=== PATIENT | male | born 1980 | race Caucasian/White ===

== ENCOUNTER 2017-10-12 19:43 | Emergency (ER) | payer OTHER ==
[2017-10-12] MEDS ORDERED: LORazepam 1 MG Tab PO ONE ×2 (19:44→22:50)
--- NOTE | 2017-10-12 22:02 | EDM.PDOC ---
ED HPI GENERAL MEDICAL PROBLEM - General Chief Complaint: General Stated Complaint: DT'S QUIT DRINKING 5 DAYS AGO, [id number] Time Seen by Provider: 10/12/17 21:45 Source of Information: Reports: Patient History Limitations: Reports: No Limitations - History of Present Illness INITIAL COMMENTS - FREE TEXT/NARRATIVE: ED with c/o withdrwal symptoms. Last drink 5 days ago. States has not slept for 3 days, shaky and anxious. Worried that he might have a seizure. Denies hx of previous seizure. Admits drinking at least a gallon of vodka daily for past 2 years. Generalized Pain Score (Numeric/FACES): 4 - Related Data Allergies Allergy/AdvReac Type Severity Reaction Status Date / Time Penicillins Allergy Cannot Verified 10/12/17 21:35 Remember Home Meds: Home Meds busPIRone [Buspar] 10 mg PO BID 10/12/17 [History] CIWAA - CIWAA CIWAA Nausea And Vomitin - Mild Nausea with No Vomiting CIWAA Tremor: 6 CIWAA Paroxysmal Sweats: 4 - Beads of Sweat Obvious on Forehead CIWAA Anxiety: 4 - Moderately Anxious, or Guarded, so Anxiety is Inferred CIWAA Agitation: 4 - Moderately Fidgety and Restless CIWAA Tactile Disturbances: 2 - Mild Itching, Pins and Howell, Burning or Numbness CIWAA Auditory Disturbances: 2 - Mild Harshness or Ability to Frighten CIWAA Visual Disturbances: 1 - Very Mild Sensitivity CIWAA Headache, Fullness in Head: 2 - Mild CIWAA Orientation And Clouding Of Sensorium: 0 - Oriented and Can do Serial Additions CIWAA Scale Score: 26 Past Medical History Psychiatric History: Reports: Addiction - Past Surgical History HEENT Surgical History: Reports: Adenoidectomy, Other (See Below) Social & Family History - Tobacco Use Smoking Status *Q: Current Every Day Smoker Years of Tobacco use: 20 Packs/Tins Daily: 20 Used Tobacco, but Quit: No Second Hand Smoke Exposure: Yes - Caffeine Use Caffeine Use: Reports: Coffee, Soda, Tea - Alcohol Use Days Per Week of Alcohol Use: 7 Number of Drinks Per Day: 20 Total Drinks Per Week: 140 Date of Last Drink: 10/08/17 - Recreational Drug Use Recreational Drug Use: Yes Drug Use in Last 12 Months: Yes Recreational Drug Type: Reports: Marijuana/Hashish Recreational Drug Use Frequency: Weekly ED ROS GENERAL - Review of Systems Review Of Systems: See Below Constitutional: Reports: Diaphoresis HEENT: Reports: No Symptoms Respiratory: Reports: No Symptoms Cardiovascular: Reports: Dyspnea on Exertion GI/Abdominal: Reports: Decreased Appetite, Nausea. Denies: Vomiting Skin: Reports: No Symptoms Neurological: Reports: Tremors Psychiatric: Reports: Anxiety, Cravings. Denies: Suicidal Ideation ED EXAM, GENERAL - Physical Exam Exam: See Below Exam Limited By: No Limitations General Appearance: Alert, Anxious, Moderate Distress Eye Exam: Bilateral Eye: EOMI, PERRL Ears: Normal External Exam, Normal TMs Nose: Normal Inspection Throat/Mouth: Normal Inspection Head: Atraumatic, Normocephalic Neck: Normal Inspection, Full Range of Motion. No: Lymphadenopathy (L), Lymphadenopathy (R) Respiratory/Chest: No Respiratory Distress, Lungs Clear, Normal Breath Sounds Cardiovascular: Normal Peripheral Pulses, Regular Rate, Rhythm, Tachycardia GI/Abdominal: Normal Bowel Sounds, Soft, Non-Tender Neurological: Alert, Oriented, Normal Cognition, Normal Gait Psychiatric: Anxious Skin Exam: Warm, Dry, Diaphoretic Course - Vital Signs Last Recorded V/S: Last Vital Signs Temp 99.4 F 10/12/17 22:44 Pulse 89 10/12/17 22:44 Resp 18 10/12/17 22:44 BP 131/84 10/12/17 22:44 Pulse Ox 99 10/12/17 22:44 - Orders/Labs/Meds Labs: Laboratory Tests 10/12/17 10/12/17 10/12/17 Range/Units 21:40 21:40 22:05 WBC 7.6 (5.0-10.0) 10^3/uL RBC 3.97 L (4.6-6.2) 10^6/uL Hgb 13.7 L (14.0-18.0) g/dL Hct 39.5 L (40.0-54.0) % MCV 99.5 (80-100) fL MCH 34.5 H (27.0-34.0) pg MCHC 34.7 (33.0-35.0) g/dL Plt Count 125 L (150-450) 10^3/uL Neut % (Auto) 80.1 H (42.2-75.2) % Lymph % (Auto) 8.9 L (20.5-50.1) % Dane % (Auto) 10.2 H (2-8) % Eos % (Auto) 0.3 L (1.0-3.0) % Baso % (Auto) 0.5 (0.0-1.0) % Sodium (135-145) mmol/L Potassium (3.6-5.0) mmol/L Chloride (101-111) mmol/L Carbon Dioxide (21.0-31.0) mmol/L Anion Gap BUN (7-18) mg/dL Creatinine (0.6-1.3) mg/dL Est Cr Clr Drug Dosing mL/min Estimated GFR (MDRD) BUN/Creatinine Ratio Glucose (74-105) mg/dL Calcium (8.4-10.2) mg/dl Total Bilirubin (0.2-1.0) mg/dL AST (10-42) IU/L ALT (10-60) IU/L Alkaline Phosphatase (42-121) IU/L Total Protein (6.7-8.2) g/dl Albumin (3.2-5.5) g/dl Globulin Albumin/Globulin Ratio Urine Color Dark yellow (YELLOW) Urine Appearance Slightly cloudy (CLEAR) Urine pH 5.5 (5.0-9.0) Ur Specific Carlton 1.025 (1.005-1.030) Urine Protein 30 H (NEGATIVE) Urine Glucose (UA) Negative (NEGATIVE) Urine Ketones 15 H (NEGATIVE) Urine Occult Blood Negative (NEGATIVE) Urine Nitrite Negative (NEGATIVE) Urine Bilirubin Moderate H (NEGATIVE) Urine Urobilinogen 1.0 (0.2-1.0) mg/dL Ur Leukocyte Esterase Negative (NEGATIVE) Urine RBC 0-5 /HPF Urine WBC 0-5 (0-5/HPF) /HPF Ur Epithelial Cells Few /HPF Urine Bacteria Moderate H (0-FEW/HPF) /HPF Urine Mucus Many H /LPF Urine Opiates Screen Negative (NEGATIVE) Ur Oxycodone Screen Negative (NEGATIVE) Urine Methadone Screen Negative (NEGATIVE) Ur Barbiturates Screen Negative (NEGATIVE) U Tricyclic Antidepress Negative (NEGATIVE) Ur Phencyclidine Scrn Negative (NEGATIVE) Ur Amphetamine Screen Negative (NEGATIVE) U Methamphetamines Scrn Negative (NEGATIVE) Urine MDMA Screen Negative (NEGATIVE) U Benzodiazepines Scrn Negative (NEGATIVE) Urine Cocaine Screen Negative (NEGATIVE) U Marijuana (THC) Screen Positive H (NEGATIVE) Ethyl Alcohol mg/dL 10/12/17 Range/Units 22:05 WBC (5.0-10.0) 10^3/uL RBC (4.6-6.2) 10^6/uL Hgb (14.0-18.0) g/dL Hct (40.0-54.0) % MCV (80-100) fL MCH (27.0-34.0) pg MCHC (33.0-35.0) g/dL Plt Count (150-450) 10^3/uL Neut % (Auto) (42.2-75.2) % Lymph % (Auto) (20.5-50.1) % Dane % (Auto) (2-8) % Eos % (Auto) (1.0-3.0) % Baso % (Auto) (0.0-1.0) % Sodium 137 (135-145) mmol/L Potassium 3.4 L (3.6-5.0) mmol/L Chloride 99 L (101-111) mmol/L Carbon Dioxide 30.0 (21.0-31.0) mmol/L Anion Gap 11.4 BUN 9 (7-18) mg/dL Creatinine 0.7 (0.6-1.3) mg/dL Est Cr Clr Drug Dosing 137.70 mL/min Estimated GFR (MDRD) > 60 BUN/Creatinine Ratio 12.85 Glucose 161 H (74-105) mg/dL Calcium 9.3 (8.4-10.2) mg/dl Total Bilirubin 0.7 (0.2-1.0) mg/dL AST 133 H (10-42) IU/L ALT 150 H (10-60) IU/L Alkaline Phosphatase 61 (42-121) IU/L Total Protein 7.7 (6.7-8.2) g/dl Albumin 4.8 (3.2-5.5) g/dl Globulin 2.9 Albumin/Globulin Ratio 1.66 Urine Color (YELLOW) Urine Appearance (CLEAR) Urine pH (5.0-9.0) Ur Specific Carlton (1.005-1.030) Urine Protein (NEGATIVE) Urine Glucose (UA) (NEGATIVE) Urine Ketones (NEGATIVE) Urine Occult Blood (NEGATIVE) Urine Nitrite (NEGATIVE) Urine Bilirubin (NEGATIVE) Urine Urobilinogen (0.2-1.0) mg/dL Ur Leukocyte Esterase (NEGATIVE) Urine RBC /HPF Urine WBC (0-5/HPF) /HPF Ur Epithelial Cells /HPF Urine Bacteria (0-FEW/HPF) /HPF Urine Mucus /LPF Urine Opiates Screen (NEGATIVE) Ur Oxycodone Screen (NEGATIVE) Urine Methadone Screen (NEGATIVE) Ur Barbiturates Screen (NEGATIVE) U Tricyclic Antidepress (NEGATIVE) Ur Phencyclidine Scrn (NEGATIVE) Ur Amphetamine Screen (NEGATIVE) U Methamphetamines Scrn (NEGATIVE) Urine MDMA Screen (NEGATIVE) U Benzodiazepines Scrn (NEGATIVE) Urine Cocaine Screen (NEGATIVE) U Marijuana (THC) Screen (NEGATIVE) Ethyl Alcohol 6 mg/dL Meds: Medications Discontinued Medications Generic Name Dose Route Start Last Admin Trade Name Freq PRN Reason Stop Dose Admin Lorazepam 2 mg 10/12/17 22:50 10/12/17 23:01 Ativan PO 10/12/17 22:51 2 mg ONETIME ONE Administration Lorazepam Confirm 10/12/17 23:32 Ativan Administered 10/12/17 23:33 Dose 3 mg .ROUTE .STK-MED ONE Lorazepam 3 mg 10/12/17 19:44 Ativan PO 10/12/17 19:45 .STK-MED ONE Departure - Departure Time of Disposition: 23:31 Disposition: Home, Self-Care 01 Condition: Fair Clinical Impression: Alcohol abuse Alcohol withdrawal Qualifiers: Complication of substance-induced condition: uncomplicated Qualified Code(s): F10.230 - Alcohol dependence with withdrawal, uncomplicated - Discharge Information Instructions: Delirium Tremens, [id number] Referrals: PCP,None [Primary Care Provider] - Forms: ED Department Discharge Additional Instructions: Follow up with primary care provider in am tonight May repeat Ativan 1mg at 1am, 5 am and 9am for anxiety, tremors due to alcohol withdrawal increase fluids
[2017-10-12 22:33] LABS: CHLORIDE,CL 99 mmol/L (101-111); SODIUM,NA 137 mmol/L (135-145)
[2017-10-12 22:45] VITALS: BP 131/84
[2017-10-12] MEDS ORDERED: LORazepam 1 MG Tab ONE (23:32)
== END 2017-10-12 23:39 | disposition home or self-care (01) ==
LOC: DL.ED 19:43
DX: F10.230 Alcohol dependence with withdrawal, uncomplicated (principal); F17.210 Nicotine dependence, cigarettes, uncomplicated; Z88.0 Allergy status to penicillin
CPT/HCPCS: 36415; 80053; 80305; 81001; 85025; 99285; A9270; G0480

== ENCOUNTER 2021-02-05 02:57 | Emergency (ER) | payer BC, OTHER ==
--- NOTE | 2021-02-05 03:28 | EDM.PDOC ---
ED HPI GENERAL MEDICAL PROBLEM - General Stated Complaint: LEFT MIDDLE FINGER, RING IS STUCK. Time Seen by Provider: 02/05/21 03:25 Source of Information: Reports: Patient, RN, RN Notes Reviewed History Limitations: Reports: No Limitations - History of Present Illness INITIAL COMMENTS - FREE TEXT/NARRATIVE: Bigg is a 40 y/o male who presents to the ED via personal vehicle with complaints of a ring stuck on the third digit of his left hand. The patient reports the ring became stuck about two hours prior to presentation at this facility. He has attempted to remove the ring with fishing line, which resulted in superficial abrasions to the proximal aspect of the middle finger. He denies loss of motor or sensory function to the digit. Left Middle Finger-Middle Pain Score (Numeric/FACES): 7 - Related Data Allergies Allergy/AdvReac Type Severity Reaction Status Date / Time mirtazapine [From Remeron] Allergy Hives Verified 02/05/21 03:35 Penicillins Allergy Cannot Verified 02/05/21 03:35 Remember Home Meds: Home Meds busPIRone [Buspar] 10 mg PO BID 10/12/17 [History] Past Medical History Psychiatric History: Reports: Addiction - Past Surgical History HEENT Surgical History: Reports: Adenoidectomy Social & Family History - Caffeine Use Caffeine Use: Reports: Coffee, Soda, Tea ED ROS GENERAL - Review of Systems Review Of Systems: Comprehensive ROS is negative, except as noted in HPI. ED EXAM, GENERAL - Physical Exam Exam: See Below Exam Limited By: No Limitations General Appearance: Alert, No Apparent Distress Throat/Mouth: Normal Inspection, Normal Oropharynx, Normal Voice, No Airway Compromise Respiratory/Chest: No Respiratory Distress, Lungs Clear, Normal Breath Sounds, No Accessory Muscle Use, Chest Non-Tender Cardiovascular: Normal Peripheral Pulses, Regular Rate, Rhythm, No Edema, No Gallop, No JVD, No Murmur, No Rub Peripheral Pulses: 2+: Radial (L), Radial (R) Extremities: Normal Range of Motion, No Pedal Edema, Normal Capillary Refill, Joint Swelling (To the metacarpophalangeal joint of the left, third digit), Arm Pain (Pain to left, third digit from ring ), Redness (To the left, third digit). No: Increased Warmth, Mottled, Pallor Neurological: Alert, Oriented, CN II-XII Intact, Normal Cognition, Normal Gait, Normal Reflexes, No Motor/Sensory Deficits Psychiatric: Normal Affect, Normal Mood Skin Exam: Wound/Incision (0.5cm x 1cm superficial, linear abrasion to posterior apect of left third digit) Lymphatic: No Adenopathy Course - Vital Signs Last Recorded V/S: Last Vital Signs Temp 98.5 F 02/05/21 03:03 Pulse 109 H 02/05/21 03:03 Resp 20 02/05/21 03:03 BP 147/101 H 02/05/21 03:03 Pulse Ox 98 02/05/21 03:03 - Re-Assessments/Exams Free Text/Narrative Re-Assessment/Exam: 02/05/21 Ring removed without complication. Reviewed supportive care for acute pain management as well as red flag signs and symptoms which would warrant reevaluation. Patient verbalized understanding and agreement with the plan of care. Departure - Departure Time of Disposition: 03:26 Disposition: Home, Self-Care 01 Condition: Good Clinical Impression: Ring or other jewelry causing external constriction, initial encounter - Discharge Information *PRESCRIPTION DRUG MONITORING PROGRAM REVIEWED*: Not Applicable *COPY OF PRESCRIPTION DRUG MONITORING REPORT IN PATIENT OSEAS: Not Applicable Referrals: PCP,None [Primary Care Provider] - Forms: ED Department Discharge Additional Instructions: 1.) You may take ibuprofen (Advil/Motrin) 400mg every six hours, as pain and sw elling persists. You may also take acetaminophen (Tylenol) 650mg every six hours, as pain persists. You may stagger these medications so you are receiving a dose every three hours. 2.) You may apply ice to the affected digit. 3.) Apply a bandage to the open wound while drainage is present, you may leave it open-to-air once the drainage has stopped. 4.) Keep wound to finger clean and dry. Sepsis Event Note (ED) - Focused Exam Vital Signs: Vital Signs Temp Pulse Resp BP Pulse Ox 02/05/21 03:03 98.5 F 109 H 20 147/101 H 98
[2021-02-05 03:36] VITALS: BP 147/101; PULSE 109
== END 2021-02-05 03:32 | disposition home or self-care (01) ==
LOC: DL.ED 02:57
DX: S60.413A Abrasion of left middle finger, initial encounter (principal); Z88.8 Allergy status to other drugs, medicaments and biological substances; Z88.0 Allergy status to penicillin; Z79.899 Other long term (current) drug therapy; W49.04XA Ring or other jewelry causing external constriction, initial encounter
CPT/HCPCS: 99282

== ENCOUNTER 2022-11-24 05:19 | Emergency (ER) | payer BC ==
[2022-11-24] MEDS ORDERED: hydrOXYzine HCl 25 MG Tab PO ONE (05:20)
[2022-11-24] MEDS ORDERED: LORazepam 1 MG Tab PO ONE (05:20)
[2022-11-24 05:38] VITALS: BP 157/112; PULSE 126
[2022-11-24] MEDS ORDERED: LORazepam 1 MG Tab ONE ×2 (05:48)
[2022-11-24] MEDS ORDERED: hydrOXYzine HCl 25 MG Tab ONE (05:48)
== END 2022-11-24 05:52 | disposition home or self-care (01) ==
LOC: DL.ED 05:19
DX: F10.230 Alcohol dependence with withdrawal, uncomplicated (principal); Z88.0 Allergy status to penicillin; Z88.8 Allergy status to other drugs, medicaments and biological substances
CPT/HCPCS: 99284; A9270

== ENCOUNTER 2022-11-26 09:03 | Emergency (ER) | payer BC ==
[2022-11-26 08:01] VITALS: BP 172/105; PULSE 118
[2022-11-26 09:00] LABS: ACETAMINOPHEN 0 ug/mL (10-30 (Therapeutic)); ESTIMATED GFR 111 mL/min (>=60)
[2022-11-26 09:04] LABS: ANION GAP 13.9 mEq/L (7-13); CHLORIDE,CL 89 mmol/L (98-107); SODIUM,NA 130 mmol/L (136-145)
[2022-11-26] MEDS ORDERED: Haloperidol Lactate 5 MG/ML SDV IM ONE ×2 (09:11→12:38)
[2022-11-26] MEDS ORDERED: MVI, Adult with Vitamin K 10 ML, Folic Acid 1 MG, Thiamine 100 MG in Lactated Ringers 1... IV ONE ×4 (09:15)
[2022-11-26] MEDS ORDERED: LORazepam 2 MG/ML SDV IVPUSH ONE ×3 (09:38→12:39)
[2022-11-26] MEDS ORDERED: Potassium Chloride 10 MEQ in Premix Bag 1 BAG IV ONE (10:27)
[2022-11-26] MEDS ORDERED: Sodium Chloride 0.9% 1,000 ML IV ONE (10:28)
[2022-11-26] MEDS ORDERED: LORazepam 2 MG/ML SDV ONE (11:33)
[2022-11-26 11:44] LABS: MDMA (ECSTASY), URINE NEGATIVE (NEGATIVE); METHADONE,URINE NEGATIVE (NEGATIVE); METHAMPHETAMINES,URINE NEGATIVE (NEGATIVE); OPIATES,URINE NEGATIVE (NEGATIVE)
[2022-11-26 11:45] LABS: AMPHETAMINES,URINE POSITIVE (NEGATIVE); BARBITURATES,URINE NEGATIVE (NEGATIVE); BENZODIAZEPINE,URINE POSITIVE (NEGATIVE); OXYCODONE,URINE NEGATIVE (NEGATIVE); PHENCYCLIDINE,URINE NEGATIVE (NEGATIVE); TCA,URINE NEGATIVE (NEGATIVE)
[2022-11-26] MEDS ORDERED: Haloperidol Lactate 5 MG/ML SDV ONE (12:39)
== END 2022-11-26 12:47 ==
LOC: DL.ED 09:03
DX: F10.230 Alcohol dependence with withdrawal, uncomplicated (principal); Z88.8 Allergy status to other drugs, medicaments and biological substances; Z88.0 Allergy status to penicillin
CPT/HCPCS: 36415; 80053; 80143; 80179; 80305; 80307; 81001; 82140; 82150; 83605; 83690; 83735; 85025; 93005; 93010; 96365; 96367; 96372; 96375; 96376; 99284; 99285; J1630; J2060; J3411; J3480; J7030; J7120; J3490

== ENCOUNTER 2023-02-28 12:41 | Emergency (ER) | payer BC ==
[2023-02-28 13:58] VITALS: BP 143/106; PULSE 103
== END 2023-02-28 13:53 | disposition home or self-care (01) ==
LOC: DL.ED 12:41
DX: S90.852A Superficial foreign body, left foot, initial encounter (principal); L03.116 Cellulitis of left lower limb; L02.416 Cutaneous abscess of left lower limb; Z88.0 Allergy status to penicillin; Z88.8 Allergy status to other drugs, medicaments and biological substances; W45.8XXA Other foreign body or object entering through skin, initial encounter
CPT/HCPCS: 73630-LT; 99282; 99283

== ENCOUNTER 2023-09-23 13:02 | Emergency (ER) | payer BC ==
[2023-09-23 13:26] VITALS: BP 156/110; PULSE 102
[2023-09-23 14:18] LABS: CORONAVIRUS COVID-19 NAA NEGATIVE (NEGATIVE); INFLUENZA A NAA POSITIVE (NEGATIVE); INFLUENZA B NAA NEGATIVE (NEGATIVE); RESPIRATORY SYNCYTIAL VIR NAA NEGATIVE (NEGATIVE)
[2023-09-23] MEDS ORDERED: Take Home: predniSONE 20 MG, 4 Tab Pack PO ONE (15:06)
== END 2023-09-23 15:25 | disposition home or self-care (01) ==
LOC: DL.ED 13:02
DX: J10.1 Influenza due to other identified influenza virus with other respiratory manifestations (principal); E78.00 Pure hypercholesterolemia, unspecified; F17.210 Nicotine dependence, cigarettes, uncomplicated; Z88.0 Allergy status to penicillin; Z88.3 Allergy status to other anti-infective agents
CPT/HCPCS: 0241U; 71046; 99285; A9270-GY

== ENCOUNTER 2023-10-25 22:06 | Emergency (ER) | payer BC ==
[2023-10-25 22:31] LABS: BASOPHILS PERCENT AUTO 0.7 % (0.0-1.0); EOSINOPHILS PERCENT AUTO 0.6 % (1.0-3.0); HEMATOCRIT 42.3 % (40.0-54.0); HEMOGLOBIN 15.3 g/dL (14.0-18.0); LYMPHOCYTES PERCENT AUTO 33.8 % (20.5-50.1); MEAN CORPUSCULAR HEMOGLOBIN 34.8 pg (27.0-34.0); MEAN CORPUSCULAR HGB CONC 36.2 g/dL (33.0-35.0); MEAN CORPUSCULAR VOLUME 96.1 fL (80-100); MONOCYTES PERCENT AUTO 9.1 % (2-8); NEUTROPHILS PERCENT AUTO 55.8 % (42.2-75.2); PLATELET COUNT,PLT 53 10^3/uL (150-450); WHITE BLOOD CELL COUNT,WBC 5.4 10^3/uL (5.0-10.0)
[2023-10-25] MEDS: MVI, Adult with Vitamin K 10 ML, Folic Acid 1 MG, Thiamine 100 MG in Lactated Ringers 1... IV ONE (22:45)
[2023-10-25] MEDS: LORazepam 2 MG/ML SDV IVPUSH ONE (22:45)
[2023-10-25] MEDS: Ondansetron 4 MG/2 ML SDV IVPUSH ONE (22:45)
[2023-10-25] MEDS: Sodium Chloride 0.9% 10 ML Syringe FLUSH PRN (22:46)
[2023-10-25 22:48] LABS: LACTIC ACID 1.5 mmol/L (0.4-2.0)
[2023-10-25 22:52] LABS: INR 1.1 (0.9-1.2); PROTHROMBIN TIME 11.4 SEC (9.0-12.0); PTT,PARTIAL THROMBOPLSTIN TIME 27.8 SEC (22.0-34.0)
[2023-10-25 22:53] LABS: ALANINE AMINOTRANSFERASE,ALT 57 U/L (16-63); ALBUMIN 4.2 g/dL (3.4-5.0); ALKALINE PHOSPHATASE 155 U/L (46-116); AMYLASE 95 U/L (25-115); ANION GAP 13.1 mEq/L (7-13); ASPARTATE AMNIOTRANSFERASE,AST 173 U/L (15-37); BLOOD UREA NITROGEN,BUN 4 mg/dL (7-18); BUN/CREATININE RATIO 5.2 (No establ ref range); CALCIUM 8.6 mg/dL (8.5-10.1); CARBON DIOXIDE,CO2 30 mmol/L (21-32); CHLORIDE,CL 96 mmol/L (98-107); CREATININE 0.77 mg/dL (0.70-1.30); EST CRCL DRUG DOSING (CG) 105.25 mL/min; GLUCOSE RANDOM 120 mg/dL (70-99); LIPASE 58 U/L (16-77); MAGNESIUM 1.6 mg/dL (1.8-2.4); POTASSIUM,K 3.1 mmol/L (3.5-5.1); PROTEIN TOTAL,TP 8.6 g/dL (6.4-8.2); SODIUM,NA 136 mmol/L (136-145)
[2023-10-25 22:55] LABS: C-REACTIVE PROTEIN < 0.50 ng/dL (<=0.50); ESTIMATED GFR 113 mL/min (>=60); ETHANOL BLOOD MEDICAL 395 mg/dL (0)
[2023-10-25 23:07] LABS: CORONAVIRUS COVID-19 NAA NEGATIVE (NEGATIVE); INFLUENZA A NAA NEGATIVE (NEGATIVE); INFLUENZA B NAA NEGATIVE (NEGATIVE); RESPIRATORY SYNCYTIAL VIR NAA NEGATIVE (NEGATIVE)
[2023-10-25] MEDS: Magnesium Sulfate/Water 2 GM in Premix Bag 1 BAG IV ONE (23:30)
[2023-10-25] MEDS: NS with KCl 40mEq 1,000 ML IV SCH (23:30)
[2023-10-25 23:55] LABS: APPEARANCE,URINE CLEAR (CLEAR); BILIRUBIN,URINE NEGATIVE (NEGATIVE); COLOR,URINE YELLOW (YELLOW); GLUCOSE,URINE NEGATIVE (NEGATIVE); KETONES,URINE NEGATIVE (NEGATIVE); LEUKOCYTE ESTERASE,URINE NEGATIVE (NEGATIVE); NITRITE,URINE NEGATIVE (NEGATIVE); OCCULT BLOOD,URINE TRACE-INTACT (NEGATIVE); PROTEIN,URINE NEGATIVE (NEGATIVE); UROBILINOGEN,URINE 0.2 mg/dL (0.2-1.0)
[2023-10-26 00:02] LABS: AMPHETAMINES,URINE NEGATIVE (NEGATIVE); BARBITURATES,URINE NEGATIVE (NEGATIVE); BENZODIAZEPINE,URINE NEGATIVE (NEGATIVE); EPITHELIAL CELLS,URINE RARE /HPF (NOT SEEN); MDMA (ECSTASY), URINE NEGATIVE (NEGATIVE); METHADONE,URINE NEGATIVE (NEGATIVE); METHAMPHETAMINES,URINE NEGATIVE (NEGATIVE); OPIATES,URINE NEGATIVE (NEGATIVE); OXYCODONE,URINE NEGATIVE (NEGATIVE); PHENCYCLIDINE,URINE NEGATIVE (NEGATIVE); RBC,URINE 0-5 /HPF (0-5); TCA,URINE NEGATIVE (NEGATIVE); WBC,URINE 0-5 /HPF (0-5/HPF)
[2023-10-26 00:03] LABS: AMORPHOUS SEDIMENT,URINE RARE /HPF (NOT SEEN); BACTERIA,URINE RARE /HPF (0-FEW/HPF); MUCUS,URINE RARE /LPF (NOT SEEN)
[2023-10-26] MEDS: LORazepam 2 MG/ML SDV IVPUSH ONE (00:23)
[2023-10-26 00:34] VITALS: BP 145/122; PULSE 125
== END 2023-10-26 00:25 ==
LOC: DL.ED 22:06
DX: F10.230 Alcohol dependence with withdrawal, uncomplicated (principal); E78.00 Pure hypercholesterolemia, unspecified; Z79.899 Other long term (current) drug therapy; Z88.8 Allergy status to other drugs, medicaments and biological substances; Z88.0 Allergy status to penicillin; Y90.8 Blood alcohol level of 240 mg/100 ml or more
CPT/HCPCS: 0241U; 36415; 71045; 80053; 80305; 80307; 81001; 82150; 83605; 83690; 83735; 84145; 85025; 85610; 85730; 86140; 93005; 93010; 96365; 96367; 96368; 96375; 96376; 99284; 99285; J2060; J2405; J3411; J3475; J3480; J7120; J3490

== ENCOUNTER 2024-10-30 13:39 | Emergency (ER) | payer BC ==
[2024-10-30] MEDS ORDERED: Sodium Chloride 0.9% 10 ML Syringe FLUSH PRN (13:52)
[2024-10-30] MEDS: Ondansetron 4 MG/2 ML SDV IVPUSH ONE (14:03)
[2024-10-30] MEDS: LORazepam 2 MG/ML SDV IVPUSH ONE (14:03)
[2024-10-30 14:07] LABS: BASOPHILS PERCENT AUTO 0.2 % (0.0-1.0); HEMATOCRIT 48.4 % (40.0-54.0); HEMOGLOBIN 17.3 g/dL (14.0-18.0); LYMPHOCYTES PERCENT AUTO 6.5 % (20.5-50.1); MEAN CORPUSCULAR HGB CONC 35.7 g/dL (33.0-35.0); MEAN CORPUSCULAR VOLUME 103.4 fL (80-100); MONOCYTES PERCENT AUTO 7.1 % (2-8); NEUTROPHILS PERCENT AUTO 86.2 % (42.2-75.2); PLATELET COUNT,PLT 228 10^3/uL (150-450); RED BLOOD CELL COUNT 4.68 10^6/uL (4.6-6.2); WHITE BLOOD CELL COUNT,WBC 11.2 10^3/uL (5.0-10.0)
[2024-10-30] MEDS: Lactated Ringers 1,000 ML IV SCH (14:10)
[2024-10-30 14:21] LABS: ANION GAP 15.8 mEq/L (7-13); CALCIUM 9.3 mg/dL (8.5-10.1); CREATININE 0.78 mg/dL (0.70-1.30); EST CRCL DRUG DOSING (CG) 103.58 mL/min; MAGNESIUM 1.1 mg/dL (1.8-2.4); POTASSIUM,K 3.8 mmol/L (3.5-5.1)
[2024-10-30] MEDS: MVI, Adult with Vitamin K 10 ML, Folic Acid 1 MG, Thiamine 100 MG in Lactated Ringers 1... IV ONE (14:22)
[2024-10-30] MEDS: hydrOXYzine HCl 25 MG Tab PO ONE (14:26)
[2024-10-30] MEDS: Magnesium Sulf/Wat 2 GM/50 mL 2 GM in Premix Bag 1 BAG IV ONE ×2 (15:08→15:39)
[2024-10-30 16:24] VITALS: BP 177/102; PULSE 102
== END 2024-10-30 16:28 | disposition home or self-care (01) ==
LOC: DL.ED 13:39
DX: F10.230 Alcohol dependence with withdrawal, uncomplicated (principal); E78.00 Pure hypercholesterolemia, unspecified; Z88.0 Allergy status to penicillin; Z88.8 Allergy status to other drugs, medicaments and biological substances; Z79.899 Other long term (current) drug therapy; Z86.16 Personal history of COVID-19; Y90.9 Presence of alcohol in blood, level not specified
CPT/HCPCS: 36415; 80048; 83735; 85025; 96365; 96366; 96367; 96375; 99284; A9270; J2060; J2405; J3411; J3475; J7120; J3490

== ENCOUNTER 2025-01-16 09:32 | Emergency (ER) | payer BC ==
[2025-01-16 09:45] VITALS: BP 144/100; PULSE 113
[2025-01-16] MEDS: Diphtheria,Pertussis(Acell),Tetanus Vaccine 0.5 ML Syringe IM ONE (10:07)
== END 2025-01-16 10:13 | disposition home or self-care (01) ==
LOC: DL.ED 09:32
DX: S60.511A Abrasion of right hand, initial encounter (principal); E78.00 Pure hypercholesterolemia, unspecified; Z23 Encounter for immunization; Z88.0 Allergy status to penicillin; Z88.8 Allergy status to other drugs, medicaments and biological substances; Z79.899 Other long term (current) drug therapy; X58.XXXA Exposure to other specified factors, initial encounter; Y93.89 Activity, other specified
CPT/HCPCS: 90471; 90715; 99282-25

== ENCOUNTER 2025-01-26 12:26 | Emergency (ER) | payer BC ==
[2025-01-26] MEDS ORDERED: Sodium Chloride 0.9% 10 ML Syringe FLUSH PRN (14:02)
[2025-01-26 14:11] LABS: BASOPHILS PERCENT AUTO 0.5 % (0.0-1.0); EOSINOPHILS PERCENT AUTO 0.5 % (1.0-3.0); HEMATOCRIT 46.2 % (40.0-54.0); HEMOGLOBIN 16.3 g/dL (14.0-18.0); LYMPHOCYTES PERCENT AUTO 22.8 % (20.5-50.1); MEAN CORPUSCULAR HEMOGLOBIN 34.5 pg (27.0-34.0); MEAN CORPUSCULAR HGB CONC 35.3 g/dL (33.0-35.0); MEAN CORPUSCULAR VOLUME 97.9 fL (80-100); MONOCYTES PERCENT AUTO 10.6 % (2-8); NEUTROPHILS PERCENT AUTO 65.6 % (42.2-75.2); PLATELET COUNT,PLT 85 10^3/uL (150-450); RED BLOOD CELL COUNT 4.72 10^6/uL (4.6-6.2)
[2025-01-26 14:30] LABS: A/G RATIO 0.9; ALBUMIN 3.5 g/dL (3.4-5.0); ANION GAP 10.8 mEq/L (7-13); BILIRUBIN TOTAL 1.3 mg/dL (0.2-1.0); BUN/CREATININE RATIO 5.8 (No establ ref range); CALCIUM 8.6 mg/dL (8.5-10.1); CREATININE 0.69 mg/dL (0.70-1.30); EST CRCL DRUG DOSING (CG) 111.82 mL/min; MAGNESIUM 1.3 mg/dL (1.8-2.4); POTASSIUM,K 3.8 mmol/L (3.5-5.1); PROTEIN TOTAL,TP 7.4 g/dL (6.4-8.2)
[2025-01-26] MEDS: Magnesium Sulfate 2 GM/50 mL 2 GM in Premix Bag 1 BAG IV ONE (14:44)
[2025-01-26] MEDS: Take Home: Benzonatate 100 MG, 6 Cap Pack PO ONE (15:35)
[2025-01-26] MEDS: predniSONE 20 MG Tab PO ONE (15:37)
[2025-01-26 15:46] VITALS: BP 150/93; PULSE 81
== END 2025-01-26 15:44 | disposition home or self-care (01) ==
LOC: DL.ED 12:26
DX: J20.9 Acute bronchitis, unspecified (principal); E78.00 Pure hypercholesterolemia, unspecified; F17.200 Nicotine dependence, unspecified, uncomplicated; Z88.0 Allergy status to penicillin; Z88.8 Allergy status to other drugs, medicaments and biological substances; Z79.899 Other long term (current) drug therapy
CPT/HCPCS: 36415; 71046; 80053; 80307; 83690; 83735; 84484; 85025; 85379; 87426; 93005; 93010; 96365; 99283; 99285; A9270; J3475; J7512